=== PATIENT | male | born 1980 | race Caucasian/White ===

== ENCOUNTER 2021-01-26 04:14 | Emergency (ER) | payer SELFPAY ==
[~2021-01-26] VITALS: Ht 167.6 cm; Wt 88.5 kg
[2021-01-26 04:21] VITALS: BP 128/63
--- NOTE | 2021-01-26 04:27 | NUR ---
ERMD IN TRIAGE FOR MEDICAL EVALUATION.
--- NOTE | 2021-01-26 04:30 | NUR ---
Pt taken to ER bed 6 via w/c
[2021-01-26] MEDS ORDERED: CYCL-711 PO (04:39)
[2021-01-26] MEDS ORDERED: KETO10TA2 PO (04:39)
[2021-01-26] MEDS: CYCLOBENZAPRINE 10 MG TAB PO ONE (04:59)
[2021-01-26] MEDS: KETOROLAC 60 MG/2 ML VIAL IM ONE (05:00)
[2021-01-26 05:11] VITALS: BP 128/63
--- NOTE | 2021-01-26 05:11 | NUR ---
Patient discharged with v/s stable. Written and verbal after care instructions given and explained. Patient alert, oriented and verbalized understanding of instructions. Ambulatory with steady gait. All questions addressed prior to discharge. ID band removed. Patient advised to follow up with PMD. Rx of FLEXERIL, KETOROLAC given. Patient educated on indication of medication including possible reaction and side effects. Opportunity to ask questions provided and answered.
== END 2021-01-26 05:11 | disposition home or self-care (01) ==
LOC: MED 04:14
DX: M54.5 Low back pain (principal); Z79.899 Other long term (current) drug therapy
CPT/HCPCS: 96372; 99283; J1885